=== PATIENT | female | born 1945 | race Caucasian/White ===

== ENCOUNTER 2017-05-21 19:59 | Emergency (ER) | payer MEDICARE, MEDICAID, SELFPAY | END 2017-05-21 23:50 | disposition home or self-care (01) | PROVIDERS: Emergency Provider Emergency Medicine; Visit Provider Emergency Medicine | DX: T44.7X1A Poisoning by beta-adrenoreceptor antagonists, accidental (unintentional), initial encounter (principal); R41.82 Altered mental status, unspecified; R00.1 Bradycardia, unspecified; F79 Unspecified intellectual disabilities | CPT/HCPCS: 71010; 80053; 82550; 82553; 84484; 93005; 96365; 99284 ==